=== PATIENT | male | born 1955 | race Caucasian/White ===

== ENCOUNTER 2019-11-10 17:50 | Emergency (ER) | payer OTHER ==
[2019-11-10 18:18] VITALS: BP 158/90
--- NOTE | 2019-11-10 18:57 | UC ---
Lower Extremity/Ankle HPI - HPI Summary HPI Summary: 64-year-old male presenting with right foot and ankle pain since 5 PM this evening. Patient states he was walking on an uneven surface when he felt his right foot roll and he heard a "pop or crack." States pain was worse at time of injury. Unsure swelling or bruising because he came straight here and did not take a look at it. States he can ambulate but has to walk flat-footed and limp. Denies numbness and tingling. - History of Current Complaint Chief Complaint: UCLowerExtremity Stated Complaint: FOOT INJURY Hx Obtained From: Patient Pain Intensity: 6 Pain Scale Used: 0-10 Numeric - Allergies/Home Medications Allergies/Adverse Reactions: Allergies Allergy/AdvReac Type Severity Reaction Status Date / Time No Known Allergies Allergy Verified 03/08/15 18:20 Home Medications: Home Medications Aspirin 81 mg CHEW TAB* 81 mg PO DAILY 11/10/19 [History Confirmed 11/10/19] PMH/Surg Hx/FS Hx/Imm Hx - Surgical History Surgical History: None - Family History Known Family History: Positive: Non-Contributory - Social History Alcohol Use: Daily Alcohol Amount: 1-2 BEERS/DAY Substance Use Type: None Substance Use Comment - Amount & Last Used: very rare Smoking Status (MU): Never Smoked Tobacco Review of Systems All Other Systems Reviewed And Are Negative: No Constitutional: Positive: Negative Skin: Positive: Negative Respiratory: Positive: Negative Cardiovascular: Positive: Negative Musculoskeletal: Positive: Arthralgia - R foot/ankle, Decreased ROM - R foot. Negative: Edema Neurological: Negative: Paresthesia, Numbness Physical Exam - Summary Physical Exam Summary: Vital Signs Reviewed: Yes A+Ox3, no distress Eyes: Conjunctiva Clear ENT: Hearing grossly normal neck: supple Respiratory: Positive: No respiratory distress, No accessory muscle use Cardiovascular: skin color reflect adequate perfusion Musculoskeletal Exam: +TTP of right lateral foot, no edema, no erythema or ecchymosis, no TTP of R ankle, ROM intact, sensation grossly intact, cap refill <2sec Neurological: Positive: Alert, ambulatory without difficulty Psychological: Positive: age appropriate behavior Skin: Positive: no rash, no ecchymosis Vital Signs: Initial Vital Signs Temp 98.9 F 11/10/19 18:11 Pulse 84 11/10/19 18:11 Resp 16 11/10/19 18:11 BP 158/90 11/10/19 18:11 Pulse Ox 98 11/10/19 18:11 Diagnostics - Radiology R foot Radiology Interpretation Completed By: ED Physician Summary of Radiographic Findings: neg fx R ankle Radiology Interpretation Completed By: ED Physician Summary of Radiographic Findings: neg fx Lower Extremity Course/Dx - Course Course Of Treatment: Discussed initial negative read of x-rays and informed the patient he'll be notified of any abnormalities found on the final report in the morning. Instructed patient to continue with rest, ice, and elevation. I provided the patient with a cam boot as well. Instructed to follow-up with orthopedics if pain does not improve within 1-2 weeks. Patient voiced understanding and agreed with the treatment plan. - Differential Dx/Diagnosis Differential Diagnosis/HQI/PQRI: Contusion, Fracture (Closed), Sprain, Strain Provider Diagnosis: Acute pain of right foot Discharge ED - Sign-Out/Discharge Documenting (check all that apply): Patient Departure All imaging exams completed and their final reports reviewed: No - Discharge Plan Condition: Stable Disposition: HOME Patient Education Materials: Foot Sprain (ED) Forms: *Work Release Referrals: Carson Servin MD [Primary Care Provider] - If Needed Ron Mcneil MD [Medical Doctor] - If Needed Additional Instructions: As discussed, your radiograph was reviewed by the provider that treated you tonight. It will be read by a radiologist tomorrow morning. If there is a finding other than that discussed with you today, you will receive a call from a care provider. Rest, ice, and elevate to help alleviate pain and swelling. Use the boot during the day. Use over the counter pain medications as directed for pain relief. Refrain from strenuous physical activity until pain has resolved. Follow up with the orthopedic referral listed below if pain does not improve within 1-2 weeks. - Billing Disposition and Condition Condition: STABLE Disposition: Home - Attestation Statements Provider Attestation: This patient was not seen by me. I was available for consult. Chart reviewed. FRANCINE
--- NOTE | 2019-11-11 10:25 | UC ---
- Progress Note Progress Note: XR wet read correct Course/Dx - Diagnoses Provider Diagnoses: Acute pain of right foot Discharge ED - Sign-Out/Discharge Documenting (check all that apply): Post-Discharge Follow Up All imaging exams completed and their final reports reviewed: Yes - Discharge Plan Condition: Stable Disposition: HOME Patient Education Materials: Foot Sprain (ED) Forms: *Work Release Referrals: Carson Servin MD [Primary Care Provider] - If Needed Ron Mcneil MD [Medical Doctor] - If Needed Additional Instructions: As discussed, your radiograph was reviewed by the provider that treated you tonight. It will be read by a radiologist tomorrow morning. If there is a finding other than that discussed with you today, you will receive a call from a care provider. Rest, ice, and elevate to help alleviate pain and swelling. Use the boot during the day. Use over the counter pain medications as directed for pain relief. Refrain from strenuous physical activity until pain has resolved. Follow up with the orthopedic referral listed below if pain does not improve within 1-2 weeks. - Billing Disposition and Condition Condition: STABLE Disposition: Home
== END 2019-11-10 20:00 | disposition home or self-care (01) ==
LOC: UCEAST 17:50
DX: M25.571 Pain in right ankle and joints of right foot (principal); W18.30XA Fall on same level, unspecified, initial encounter; Y92.9 Unspecified place or not applicable; Z79.82 Long term (current) use of aspirin
CPT/HCPCS: 99202; G0463